=== PATIENT | female | born 2000 ===

== ENCOUNTER 2024-07-02 21:29 | Emergency (ER) | payer MEDICAID ==
[~2024-07-02] VITALS: Ht 160 cm; Wt 68.1 kg
[2024-07-02 21:46] VITALS: TEMP 97.9
[2024-07-02 22:09] LABS: BASOPHILS % (AUTO) 1.2 % (0.0-2.0); HEMATOCRIT 30.7 % (36-46); HEMOGLOBIN 10.1 g/dL (12.0-16.0); LYMPHOCYTES # (AUTO) 2.8 K/uL (1.0-4.8); LYMPHOCYTES % (AUTO) 35.5 % (22.0-44.0); MEAN CORPUSCULAR HEMOGLOBIN 29.9 pg (26.0-34.0); MEAN CORPUSCULAR HGB CONC 32.8 G/dL (31.0-37.0); MEAN CORPUSCULAR VOLUME 91 fL (80-100); MONOCYTES # (AUTO) 0.6 K/uL (0.1-1.0); MONOCYTES % (AUTO) 7.9 % (2.0-9.0); NEUTROPHILS # (AUTO) 3.5 K/uL (1.8-7.7); NEUTROPHILS % (AUTO) 45.4 % (40.0-70.0); PLATELET COUNT (AUTO) 409 K/uL (150-450); RED BLOOD CELL COUNT(AUTO) 3.37 MIL/uL (4.00-5.20); RED CELL DISTRIBUTION WIDTH 14.6 % (11.5-14.5); WHITE BLOOD COUNT (AUTO) 7.8 K/uL (4.5-11.0)
[2024-07-02 22:17] LABS: ANION GAP 7 mmol/L (8-16); CALCIUM, TOTAL 8.5 mg/dL (8.8-10.5); CARBON DIOXIDE 30 mmol/L (22-29); CHLORIDE 104 mmol/L (98-107); CREATININE 0.97 mg/dL (0.60-1.30); GLOMERULAR FILTR. RATE CALC > 60 mL/min (>60); GLUCOSE,RANDOM 90 mg/dL (70-110); POTASSIUM 4.1 mmol/L (3.5-5.1); SODIUM SERUM 141 mmol/L (136-145); UREA NITROGEN, BLOOD 18 mg/dL (7-18)
[2024-07-02 23:06] VITALS: BP 118/74; PULSE 75; RESP 18
[2024-07-02] MEDS ORDERED: KETO10TA2 PO (23:16)
[2024-07-02] MEDS ORDERED: HYDR-4062 PO (23:16)
[2024-07-02] MEDS: KETOROLAC TROMETHAMINE 30 MG/ML VIAL IM ONE (23:23)
[2024-07-03] MEDS ORDERED: HYDR-4062 PO (00:08)
[2024-07-03] MEDS ORDERED: OXYC-38 PO (00:11)
== END 2024-07-02 23:37 | disposition home or self-care (01) ==
LOC: EMS 21:29
DX: R07.89 Other chest pain (principal)
CPT/HCPCS: 99285; 71046; 80048; 85025; 36415; 93005; 96372; J1885